=== PATIENT | female | born 1950 | race Caucasian/White ===

== ENCOUNTER 2022-06-25 08:57 | Emergency (ER) | payer MEDICARE, OTHER | END 2022-06-25 10:28 | disposition home or self-care (01) | LOC: MW.ED 08:57 | DX: N39.0 Urinary tract infection, site not specified (principal) | CPT/HCPCS: 81001; 87086; 87088; 87186; 99283 ==

== ENCOUNTER 2022-11-13 03:45 | Inpatient (IN) | payer MEDICARE, OTHER ==
[2022-11-13] MEDS ORDERED: Ondansetron 4 MG/2 ML SDV IVPUSH ONE ×2 (04:02→10:21)
[2022-11-13] MEDS ORDERED: Sodium Chloride 0.9% 1,000 ML IV ONE (04:02)
[2022-11-13] MEDS ORDERED: Morphine 4 MG/ML Syringe IVPUSH ONE (04:02)
[2022-11-13 04:52] LABS: CARBON DIOXIDE,CO2 27.8 mmol/L (21.0-32.0); POTASSIUM,K 3.8 mmol/L (3.5-5.1)
[2022-11-13] MEDS ORDERED: cefTRIAXone 1 GM in Sodium Chloride 0.9% 50 ML IV ONE (05:24)
[2022-11-13] MEDS ORDERED: Iopamidol 755 MG/ML 500 ML Multipack Bottle IVPUSH ONE (05:49)
[2022-11-13] MEDS ORDERED: diphenhydrAMINE 50 MG/ML SDV IVPUSH ONE (06:30)
[2022-11-13] MEDS ORDERED: Lactated Ringers 1,000 ML IV STA (07:28)
[2022-11-13] MEDS ORDERED: Morphine 4 MG/ML Syringe IVPUSH STA (07:35)
[2022-11-13] MEDS ORDERED: Morphine 4 MG/ML Syringe ONE (07:36)
[2022-11-13 08:41] LABS: CORONAVIRUS COVID-19 NAA NEGATIVE (NEGATIVE); INFLUENZA A NAA NEGATIVE (NEGATIVE); INFLUENZA B NAA NEGATIVE (NEGATIVE); RESPIRATORY SYNCYTIAL VIR NAA NEGATIVE (NEGATIVE)
[2022-11-13] MEDS ORDERED: fentaNYL 50 MCG/ML SDV IVPUSH ONE (10:11)
[2022-11-13] MEDS ORDERED: cefOXitin 2 GM in Premix Bag 1 BAG IV ONE (12:13)
[2022-11-13] MEDS ORDERED: Dexamethasone 4 MG/ML 5 ML MDV ONE (12:38)
[2022-11-13] MEDS ORDERED: fentaNYL 100 MCG/2 ML SDV ONE (12:38)
[2022-11-13] MEDS ORDERED: Rocuronium Bromide 50 MG/5 ML Syringe ONE (12:38)
[2022-11-13] MEDS ORDERED: Sugammadex Sodium 200 MG/2 ML VIAL ONE (12:38)
[2022-11-13] MEDS ORDERED: Propofol 200 MG/20 ML SDV ONE (12:38)
[2022-11-13] MEDS ORDERED: Lidocaine 2% 5 ML SDV ONE (12:38)
[2022-11-13] MEDS ORDERED: Ondansetron 4 MG/2 ML SDV ONE (12:38)
[2022-11-13] MEDS ORDERED: Ropivacaine 0.5% 5 MG/ML 30 ML SDV ONE ×2 (12:46→14:41)
[2022-11-13] MEDS ORDERED: Bupivacaine 0.25%/EPINEPHrine 1:200,000 10 ML SDV ONE (12:47)
[2022-11-13 13:01] LABS: CARBON DIOXIDE,CO2 29.4 mmol/L (21.0-32.0)
[2022-11-13] MEDS ORDERED: Bupivacaine 0.5% 30 ML SDV ONE ×2 (13:37→14:37)
[2022-11-13] MEDS ORDERED: cefOXitin 1 GM Vial ONE (13:39)
[2022-11-13] MEDS ORDERED: ePHEDrine 50 MG/ML SDV ONE (13:56)
[2022-11-13] MEDS ORDERED: Morphine 2 MG/ML SYRINGE IVPUSH PRN (15:22)
[2022-11-13] MEDS ORDERED: Naloxone 0.4 MG/ML SDV IVPUSH PRN (15:22)
[2022-11-13] MEDS ORDERED: HYDROmorphone 1 MG/ML Syringe IVPUSH PRN (15:22)
[2022-11-13] MEDS ORDERED: Ondansetron 4 MG/2 ML SDV IVPUSH PRN (15:22)
[2022-11-13] MEDS ORDERED: Metoclopramide 10 MG/2 ML SDV IVPUSH PRN (15:22)
[2022-11-13] MEDS ORDERED: fentaNYL 50 MCG/ML SDV IVPUSH PRN (15:22)
[2022-11-13] MEDS ORDERED: Albuterol 0.083% 2.5 MG/3 ML Neb Soln NEB PRN (15:22)
[2022-11-13] MEDS ORDERED: Morphine Sulfate in 0.9 % NaCl 50 MG/50 ML PCA Bag IV SCH (15:30)
[2022-11-13] MEDS ORDERED: Lactated Ringers 1,000 ML IV SCH (15:30)
[2022-11-13] MEDS ORDERED: cefOXitin 1 GM in Premix Bag 1 BAG IV SCH (15:30)
[2022-11-13] MEDS ORDERED: HYDROmorphone/Normal Saline 10 MG/50 ML PCA IV PRN ×2 (16:10→16:16)
[2022-11-13] MEDS: cefOXitin 1 GM in Premix Bag 1 BAG IV SCH ×2 (16:46→22:38)
[2022-11-13] MEDS: Lactated Ringers 1,000 ML IV SCH (19:35)
[2022-11-13] MEDS ORDERED: diphenhydrAMINE 50 MG/ML SDV IM ONE (22:45)
[2022-11-14] MEDS: cefOXitin 1 GM in Premix Bag 1 BAG IV SCH ×2 (04:02→11:54)
[2022-11-14] MEDS: Lactated Ringers 1,000 ML IV SCH ×2 (04:02→12:12)
[2022-11-14] MEDS: Ondansetron 4 MG/2 ML SDV IVPUSH PRN ×2 (16:06→22:38)
[2022-11-14] MEDS ORDERED: Pramipexole 0.25 MG Tab PO SCH (21:00)
[2022-11-15] MEDS: Metoclopramide 10 MG/2 ML SDV IV PRN (01:21)
[2022-11-15] MEDS: Lactated Ringers 1,000 ML IV SCH ×3 (04:43→21:05)
[2022-11-15] MEDS: Ondansetron 4 MG/2 ML SDV IVPUSH PRN (09:59)
[2022-11-15 15:38] LABS: CARBON DIOXIDE,CO2 27.2 mmol/L (21.0-32.0); POTASSIUM,K 3.6 mmol/L (3.5-5.1)
[2022-11-15] MEDS ORDERED: HYDROmorphone 1 MG/ML Syringe IVPUSH PRN ×2 (16:38→17:15)
[2022-11-15] MEDS ORDERED: Pramipexole 0.25 MG Tab PO SCH (16:45)
[2022-11-15] MEDS: Pramipexole 0.25 MG Tab PO SCH (17:57)
[2022-11-15] MEDS ORDERED: Simvastatin 40 MG Tab PO SCH (21:00)
[2022-11-15] MEDS ORDERED: Gabapentin 300 MG Cap PO SCH (22:00)
[2022-11-15] MEDS ORDERED: Magnesium Sulfate/Water 2 GM in Premix Bag 1 BAG IV ONE (22:41)
[2022-11-15] MEDS ORDERED: Phosphorus #1 250 MG Tab PO ONE (22:42)
[2022-11-16] MEDS: HYDROmorphone 1 MG/ML Syringe IVPUSH PRN ×3 (01:40→21:20)
[2022-11-16] MEDS: Ondansetron 4 MG/2 ML SDV IVPUSH PRN ×3 (01:40→21:20)
[2022-11-16] MEDS: Lactated Ringers 1,000 ML IV SCH (05:55)
[2022-11-16 07:54] LABS: CARBON DIOXIDE,CO2 26.9 mmol/L (21.0-32.0); POTASSIUM,K 3.4 mmol/L (3.5-5.1)
[2022-11-16] MEDS ORDERED: Hydrochlorothiazide/Triamterene 25-37.5 Tab PO SCH (09:00)
[2022-11-16] MEDS ORDERED: Lisinopril 10 MG Tab PO SCH (09:00)
[2022-11-16] MEDS ORDERED: Venlafaxine 75 MG Cap.ER PO SCH (09:00)
[2022-11-16] MEDS ORDERED: Pramipexole 0.25 MG Tab PO SCH ×2 (09:00)
[2022-11-16] MEDS: Hydrochlorothiazide/Triamterene 25-37.5 Tab PO SCH (10:17)
[2022-11-16] MEDS: Venlafaxine 75 MG Cap.ER PO SCH (10:17)
[2022-11-16] MEDS: Gabapentin 300 MG Cap PO SCH ×3 (10:17→17:28)
[2022-11-16] MEDS: Lisinopril 10 MG Tab PO SCH (10:28)
[2022-11-16] MEDS: Pramipexole 0.25 MG Tab PO SCH (17:28)
[2022-11-16] MEDS ORDERED: Simvastatin 40 MG Tab PO SCH (21:00)
[2022-11-16] MEDS: Metoclopramide 10 MG/2 ML SDV IV PRN (23:01)
[2022-11-17] MEDS: HYDROmorphone 1 MG/ML Syringe IVPUSH PRN (00:53)
[2022-11-17 08:02] LABS: CARBON DIOXIDE,CO2 29.4 mmol/L (21.0-32.0); POTASSIUM,K 3.1 mmol/L (3.5-5.1)
[2022-11-17] MEDS ORDERED: Potassium Chloride 20 MEQ Tab.ER PO ONE (08:37)
[2022-11-17] MEDS: Venlafaxine 75 MG Cap.ER PO SCH (09:08)
[2022-11-17] MEDS: Hydrochlorothiazide/Triamterene 25-37.5 Tab PO SCH (09:08)
[2022-11-17] MEDS: Lisinopril 10 MG Tab PO SCH (09:13)
[2022-11-17] MEDS: Gabapentin 300 MG Cap PO SCH (10:05)
== END 2022-11-17 12:20 | disposition home or self-care (01) | DRG 330 ==
LOC: MW.ED 03:45 → MW.ICU 15:16 → MW.MS 11-14 16:15
PROVIDERS: ADMIT Surgery; ATTEND Surgery
PROC: 0DQH0ZZ Repair Cecum, Open Approach (ICD-10-PCS; principal; 2022-11-13)
PROC: 0DTJ0ZZ Resection of Appendix, Open Approach (ICD-10-PCS; 2022-11-13)
PROC: 0DNH0ZZ Release Cecum, Open Approach (ICD-10-PCS; 2022-11-13)
PROC: 0DBU0ZX Excision of Omentum, Open Approach, Diagnostic (ICD-10-PCS; 2022-11-13)
DX: K56.2 Volvulus (principal); N39.0 Urinary tract infection, site not specified; I10 Essential (primary) hypertension; E78.5 Hyperlipidemia, unspecified; E11.9 Type 2 diabetes mellitus without complications; Z79.899 Other long term (current) drug therapy; Z88.5 Allergy status to narcotic agent; Z88.1 Allergy status to other antibiotic agents; Z88.2 Allergy status to sulfonamides; E78.00 Pure hypercholesterolemia, unspecified; K21.9 Gastro-esophageal reflux disease without esophagitis; G35 Multiple sclerosis; Z86.19 Personal history of other infectious and parasitic diseases; Z90.49 Acquired absence of other specified parts of digestive tract; Z20.822 Contact with and (suspected) exposure to COVID-19; K56.51 Intestinal adhesions [bands], with partial obstruction
CPT/HCPCS: 00840; 0241U; 36415; 64488; 71045; 71045-26; 74177; 74177-26; 80048; 80053; 81001; 82803; 82947; 83605; 83690; 83735; 84100; 84484; 85025; 85610; 86850; 86900; 86901; 87086; 87088; 87186; 93005; 99100; A9270-GY; J0694; J0696; J1100; J1170; J1200; J2270; J2405; J2704; J2765; J2795; J3010; J3475; J3490; J7030; J7120; Q9967

== ENCOUNTER 2024-03-25 09:31 | Day surgery (SDC) | payer MEDICARE, OTHER ==
[2024-03-25] MEDS ORDERED: dexmedeTOMIDine HCl 200 MCG/2 ML SDV IV ONE (09:32)
[2024-03-25] MEDS: Lactated Ringers 1,000 ML IV SCH (10:10)
[2024-03-25] MEDS ORDERED: Propofol 200 MG/20 ML SDV ONE ×2 (10:15→10:43)
[2024-03-25] MEDS ORDERED: Lactated Ringers 1,000 ML IV SCH (11:30)
== END 2024-03-25 12:20 | disposition home or self-care (01) ==
LOC: MW.SDS 09:31
PROVIDERS: ATTEND Surgery
DX: Z12.11 Encounter for screening for malignant neoplasm of colon (principal); K57.30 Diverticulosis of large intestine without perforation or abscess without bleeding; E11.9 Type 2 diabetes mellitus without complications; I10 Essential (primary) hypertension; K21.9 Gastro-esophageal reflux disease without esophagitis; E78.00 Pure hypercholesterolemia, unspecified; Z79.899 Other long term (current) drug therapy; Z88.5 Allergy status to narcotic agent; Z88.2 Allergy status to sulfonamides; Z88.1 Allergy status to other antibiotic agents
CPT/HCPCS: G0121; J2704; J7120; J3490

== ENCOUNTER 2025-03-21 07:01 | Emergency (ER) | payer MEDICARE, OTHER ==
[2025-03-21 07:28] LABS: BASOPHILS ABSOLUTE AUTO 0.03 K/uL (0.00-0.20); BASOPHILS PERCENT AUTO 0.4 % (0.0-1.0); EOSINOPHILS ABSOLUTE AUTO 0.04 K/uL (0.00-0.45); EOSINOPHILS PERCENT AUTO 0.6 % (0.0-6.0); HEMATOCRIT 37.5 % (37.0-47.0); HEMOGLOBIN 12.7 g/dL (12.0-16.0); IMMATURE GRAN ABSOLUTE AUTO 0.01 K/uL (0.00-0.05); IMMATURE GRAN PERCENT AUTO 0.1 % (0.0-0.4); LYMPHOCYTES ABSOLUTE AUTO 1.43 K/uL (1.00-4.80); LYMPHOCYTES PERCENT AUTO 19.8 % (24.0-44.0); MEAN CORPUSCULAR HEMOGLOBIN 31.9 pg (28.0-32.0); MEAN CORPUSCULAR HGB CONC 33.9 g/dL (32.0-36.0); MEAN CORPUSCULAR VOLUME 94.2 fL (83.0-99.0); MEAN PLATELET VOLUME 9.2 fL (9.4-12.3); MONOCYTES PERCENT AUTO 6.9 % (0.0-8.0); NEUTROPHILS ABSOLUTE AUTO 5.21 K/uL (1.80-7.70); NEUTROPHILS PERCENT AUTO 72.2 % (41.0-71.0); PLATELET COUNT,PLT 235 K/uL (150-400); RED BLOOD CELL COUNT 3.98 M/uL (4.10-5.30); WHITE BLOOD CELL COUNT,WBC 7.22 K/uL (3.9-11.3)
[2025-03-21] MEDS: Sodium Chloride 0.9% 1,000 ML IV ONE (07:34)
[2025-03-21] MEDS: Famotidine 20 MG/2 ML SDV IVPUSH ONE (07:34)
[2025-03-21] MEDS: Ondansetron 4 MG/2 ML SDV IVPUSH ONE (07:34)
[2025-03-21 07:44] LABS: CALCIUM 9.6 mg/dL (8.5-10.1); CARBON DIOXIDE,CO2 23.4 mmol/L (21.0-32.0); CREATININE 1.1 mg/dL (0.6-1.0); EST CRCL DRUG DOSING (CG) 34.37 mL/min
== END 2025-03-21 08:44 | disposition home or self-care (01) ==
LOC: MW.ED 07:01
DX: R11.10 Vomiting, unspecified (principal); T50.995A Adverse effect of other drugs, medicaments and biological substances, initial encounter; I10 Essential (primary) hypertension; K21.9 Gastro-esophageal reflux disease without esophagitis; E11.9 Type 2 diabetes mellitus without complications; Z88.5 Allergy status to narcotic agent; Z88.2 Allergy status to sulfonamides; Z79.899 Other long term (current) drug therapy; Z90.49 Acquired absence of other specified parts of digestive tract; Z90.710 Acquired absence of both cervix and uterus
CPT/HCPCS: 36415; 80048; 85025; 96361; 96374; 96375; 99283; 99284-25; J2405; J7030

== ENCOUNTER 2025-10-17 08:11 | Day surgery (SDC) | payer MEDICARE, OTHER ==
[2025-10-17] MEDS: Lactated Ringers 1,000 ML IV SCH (08:45)
[2025-10-17] MEDS ORDERED: Propofol 200 MG/20 ML SDV ONE (09:29)
[2025-10-17] MEDS ORDERED: Lactated Ringers 1,000 ML IV SCH (10:00)
== END 2025-10-17 10:50 | disposition home or self-care (01) ==
LOC: MW.SDS 08:11
PROVIDERS: ATTEND Surgery
DX: K31.89 Other diseases of stomach and duodenum (principal); K44.9 Diaphragmatic hernia without obstruction or gangrene; K29.50 Unspecified chronic gastritis without bleeding; E78.00 Pure hypercholesterolemia, unspecified; E11.9 Type 2 diabetes mellitus without complications; I10 Essential (primary) hypertension; Z88.5 Allergy status to narcotic agent; Z88.1 Allergy status to other antibiotic agents; Z88.2 Allergy status to sulfonamides; Z79.899 Other long term (current) drug therapy
CPT/HCPCS: 43239; J2704; J7120; 00731; 99100; J1596